=== PATIENT | female | born 1985 | race American Indian/Alaskan Native ===

== ENCOUNTER 2020-10-09 11:03 | Emergency (ER) | payer SELFPAY ==
[2020-10-09 11:26] VITALS: BP 127/85
[2020-10-09 12:15] LABS: Basophils # (Auto) 0.1 K/mm3 (0.0-0.1); Basophils % (Auto) 1.2 % (0.0-1.8); Eosinophils # (Auto) 0.6 K/mm3 (0.0-0.4); Eosinophils % (Auto) 10.5 % (0.0-4.3); Hematocrit 38.5 % (30.3-42.9); Hemoglobin 13.1 gm/dl (10.1-14.3); Lymphocytes # (Auto) 2.1 K/mm3 (1.2-5.4); Lymphocytes % (Auto) 39.5 % (13.4-35.0); Mean Corpuscular HGB Conc 34 % (30-34); Mean Corpuscular Volume 84 fl (79-97); Monocytes # (Auto) 0.7 K/mm3 (0.0-0.8); Monocytes % (Auto) 13.2 % (0.0-7.3); Platelet Count 320 K/mm3 (140-440); Red Blood Count 4.59 M/mm3 (3.65-5.03); Red Cell Distribution Width 13.7 % (13.2-15.2)
[2020-10-09 12:29] LABS: Bilirubin,Urine NEG (Negative); Blood,Urine LG (Negative); Color,Urine Straw (Yellow); Protein,Urine <15 mg/dL mg/dL (Negative); Urobilinogen,Urine < 2.0 mg/dL (<2.0)
[2020-10-09 12:30] LABS: HCG Qualitative,Urine Negative (Negative)
--- NOTE | 2020-10-09 12:31 | Emergency Department Report ---
ED Female HPI - General Chief complaint: Vaginal Bleeding Stated complaint: IRREGULAR CYCLE Time Seen by Provider: 10/09/20 12:22 Source: patient Mode of arrival: Ambulatory Limitations: No Limitations - History of Present Illness Initial comments: Patient is a 34-year-old female who presents emergency room with complaints of irregular vaginal bleeding. She states that her menstrual cycle began on September 01, 2020 and lasted for approximately a month. She states then she did not have any bleeding for approximately a week and a half. He states that then she began having bleeding again and is still having light bleeding currently. She denies any heavy bleeding or passing clots. States that she has had some mild abdominal bloating and cramping. She denies any fever, nausea, vomiting, diarrhea, dysuria, abnormal vaginal discharge. She states that she last saw [facility] in April 2020. No past medical history. No allergies to medications. She states that she has not been on any control for approximately 3 years. - Related Data Previous Rx's Medication Instructions Recorded Last Taken Type Cyclobenzaprine [Flexeril] 10 mg PO TID PRN #30 tablet 05/20/15 Unknown Rx HYDROcodone/APAP 5-325 [[place] 1 each PO Q6HR PRN #12 tablet 05/20/15 Unknown Rx 5/325] Ibuprofen [Motrin] 600 mg PO Q8H PRN #40 tablet 05/20/15 Unknown Rx medroxyPROGESTERone ACETATE 10 mg PO QDAY 10 Days #10 tablet 10/09/20 Unknown Rx [Provera] Allergies Allergy/AdvReac Type Severity Reaction Status Date / Time No Known Allergies Allergy Unverified 05/20/15 12:45 ED Review of Systems ROS: Stated complaint: IRREGULAR CYCLE Other details as noted in HPI Comment: All other systems reviewed and negative ED Past Medical Hx - Past Medical History Previous Medical History?: No - Surgical History Additional Surgical History: - Social History Smoking Status: Never Smoker Substance Use Type: Alcohol - Medications Home Medications: Home Medications Medication Instructions Recorded Confirmed Last Taken Type Cyclobenzaprine [Flexeril] 10 mg PO TID PRN #30 tablet 05/20/15 Unknown Rx HYDROcodone/APAP 5-325 [[place] 1 each PO Q6HR PRN #12 tablet 05/20/15 Unknown Rx 5/325] Ibuprofen [Motrin] 600 mg PO Q8H PRN #40 tablet 05/20/15 Unknown Rx medroxyPROGESTERone ACETATE 10 mg PO QDAY 10 Days #10 tablet 10/09/20 Unknown Rx [Provera] ED Physical Exam - General Limitations: No Limitations General appearance: alert, in no apparent distress - Head Head exam: Present: atraumatic, normocephalic - Eye Eye exam: Present: normal appearance - ENT ENT exam: Present: mucous membranes moist - Respiratory Respiratory exam: Present: normal lung sounds bilaterally. Absent: respiratory distress, wheezes, rales, rhonchi, stridor, chest wall tenderness, accessory muscle use, decreased breath sounds, prolonged expiratory - Cardiovascular Cardiovascular Exam: Present: regular rate, normal rhythm, normal heart sounds. Absent: systolic murmur, diastolic murmur, rubs, gallop - GI/Abdominal GI/Abdominal exam: Present: soft, normal bowel sounds. Absent: distended, tenderness, guarding, rebound, rigid - Neurological Exam Neurological exam: Present: alert, oriented X3 - Psychiatric Psychiatric exam: Present: normal affect, normal mood - Skin Skin exam: Present: warm, dry, intact ED Course Vital Signs 10/09/20 11:24 Temperature 99.1 F Pulse Rate 72 Respiratory 17 Rate Blood Pressure 127/85 [Right] O2 Sat by Pulse 100 Oximetry ED Medical Decision Making - Lab Data Result diagrams: 10/09/20 11:45 - Medical Decision Making Patient is a 34-year-old female who presents emergency room with complaints of irregular vaginal bleeding. She states that her menstrual cycle began on September 01, 2020 and lasted for approximately a month. She states then she did not have any bleeding for approximately a week and a half. He states that then she began having bleeding again and is still having light bleeding currently. She denies any heavy bleeding or passing clots. States that she has had some mild abdominal bloating and cramping. She denies any fever, nausea, vomiting, diarrhea, dysuria, abnormal vaginal discharge. She states that she last saw [facility] in April 2020. No past medical history. No allergies to medications. She states that she has not been on any control for approximately 3 years. vitals are normal. on exam: No abdominal tenderness on exam, no guarding, no rebound, no rigidity, no bowel sounds, no peritoneal signs. H&H is normal. UA is within normal limits. Urine is negative. Patient given prescription for Provera. Advised patient Please take medication as prescribed. Follow-up with an [facility]. Return to emergency room for new or worsening symptoms. Critical care attestation.: If time is entered above; I have spent that time in minutes in the direct care of this critically ill patient, excluding procedure time. ED Disposition Clinical Impression: Abnormal uterine bleeding (AUB) Disposition: TO HOME OR SELFCARE Is pt being admited?: No Does the pt Need Aspirin: No Condition: Stable Instructions: Abnormal Uterine Bleeding Additional Instructions: Please take medication as prescribed. Follow-up with an [facility]. Return to emergency room for new or worsening symptoms. Prescriptions: medroxyPROGESTERone ACETATE [Provera] 10 mg PO QDAY 10 Days #10 tablet Referrals: [facility] [Provider Group] - 2-3 Days [facility] [Provider Group] - 2-3 Days Time of Disposition: 12:32 Print Language: ANGOLAN
== END 2020-10-09 12:58 | disposition home or self-care (01) ==
LOC: ED 11:03
DX: N93.9 Abnormal uterine and vaginal bleeding, unspecified (principal); Z72.89 Other problems related to lifestyle; Z79.899 Other long term (current) drug therapy
CPT/HCPCS: 36415; 81001; 81025; 85025; 99283

== ENCOUNTER 2020-10-11 09:17 | Emergency (ER) | payer SELFPAY | END 2020-10-11 09:35 | disposition left against medical advice (07) | LOC: ED 09:17 | DX: R10.9 Unspecified abdominal pain (principal); Z53.21 Procedure and treatment not carried out due to patient leaving prior to being seen by health care provider ==